=== PATIENT | female | born 1990 | race Asian ===

== ENCOUNTER 2024-03-10 23:35 | Observation (INO) ==
[2024-03-11 01:10] LABS: ABS Eosinophils 0.1 10^3/uL (0.0-0.5); ABS Lymphocytes 1.3 10^3/uL (1.0-4.8); ABS Monocytes 0.7 10^3/uL (0.0-0.9); ABS Neutrophils 7.5 10^3/uL (1.5-7.6); Eosinophil % 0.9 %; Hematocrit 37.1 % (35-45); Hemoglobin 12.4 g/dL (11.5-14.3); Lymphocyte % 13.9 %; Mean Corpuscular Hgb Conc 33.3 g/dL (31-36); Mean Corpuscular Volume 87.2 fL (80-97); Mean Platelet Volume 7.9 fL (7.5-11.2); Platelet Count 171 10^3/uL (150-450); Red Blood Count 4.26 10^6/uL (3.63-4.92); Red Cell Distribution Width 13.9 % (12-17); White Blood Count 9.7 10^3/uL (3.8-11.8)
[2024-03-11] MEDS: Morphine 4 MG/ML VIAL (1 ml) IV ONE (01:24)
[2024-03-11] MEDS: Ondansetron 4 mg VIAL 2 MG/ML 2 ml VIAL IV ONE (01:24)
[2024-03-11 01:40] LABS: Urine Appearance Clear; Urine Bilirubin Negative (Negative); Urine Blood 1+ (Negative); Urine Color Light-Yellow; Urine Glucose Negative (Negative); Urine Ketones 2+ (Negative); Urine Nitrite Negative (Negative); Urine Protein Negative (Negative); Urine Specific Gravity 1.019 (1.002-1.030); Urine Urobilinogen Negative (Negative); Urine pH 6.5 (5.0-8.0)
[2024-03-11 01:51] LABS: ALT 13 U/L (7-52); AST 11 U/L (13-39); Albumin 4.1 g/dL (3.5-5.7); Albumin/Globulin Ratio 1.6 (1-3); Alkaline Phosphatase 54 U/L (35-149); Anion Gap 8 mmol/L (2-16); Blood Urea Nitrogen 14 mg/dL (6-24); C Reactive Protein 117.68 mg/L (<8.01); CO2 Carbon Dioxide 23 mmol/L (22-32); Calcium 8.7 mg/dL (8.6-10.3); Chloride 102 mmol/L (101-111); Creatinine, Serum 0.96 mg/dL (0.51-0.95); Globulin 2.6 g/dL (2-4); Glucose 93 mg/dL (70-100); Lipase 14 U/L (11.0-82.0); Potassium 3.8 mmol/L (3.5-5.0); Sodium 133 mmol/L (135-145); Total Bilirubin 0.8 mg/dL (0.2-1.0); Total Protein 6.7 g/dL (6.4-8.9); eGFR CKD-EPI 79.6 (>60)
[2024-03-11 01:58] LABS: HCG Pregnancy < 0.60 mIU/mL
[2024-03-11 02:40] LABS: Urine Bacteria Absent /HPF (Absent); Urine Red Blood Cell 1+(3-5/hpf) /HPF (0-Trace); Urine Squamous Epithelial Cell Present /HPF (Absent); Urine White Blood Cell Absent /HPF (0-Trace)
[2024-03-11] MEDS: cefTRIAXone 1 gm/50 mL D5W 1 GM/50 ML BAG IV ONE (04:53)
[2024-03-11] MEDS ORDERED: Morphine 2 MG/ML SYRINGE IV PRN (05:17)
[2024-03-11] MEDS: Lactated Ringers 1000 ml BAG 1,000 ML IV SCH ×2 (05:57→18:42)
[2024-03-11] MEDS: fentaNYL 100 mcg/2 ml 50 MCG/ML VIAL IV SLOW PU PRN (06:06)
[2024-03-11] MEDS ORDERED: Metoclopramide 5 MG/ML VIAL (10 mg) IV PRN (14:05)
[2024-03-11] MEDS ORDERED: fentaNYL 100 mcg/2 ml 50 MCG/ML VIAL IV PRN (14:05)
[2024-03-11] MEDS ORDERED: Ondansetron 4 mg VIAL 2 MG/ML 2 ml VIAL IV PRN (14:05)
[2024-03-11] MEDS ORDERED: Naloxone 0.4 mg VIAL 0.4 mg/ml 1 ml VIAL IV PRN (14:05)
[2024-03-11] MEDS ORDERED: Dexamethasone IV 4 MG/ML VIAL 1 ml VIAL ONE (14:23)
[2024-03-11] MEDS ORDERED: fentaNYL 100 mcg/2 ml 50 MCG/ML VIAL ONE (14:23)
[2024-03-11] MEDS ORDERED: Midazolam 2 mg/2 ml VIAL 1 mg/ml 2 ml VIAL (2 mg) ONE (14:23)
[2024-03-11] MEDS ORDERED: Ondansetron 4 mg VIAL 2 MG/ML 2 ml VIAL ONE (14:23)
[2024-03-11] MEDS ORDERED: Rocuronium 50 mg VIAL 10 mg/ml 5 ml VIAL (50 mg) ONE (14:23)
[2024-03-11] MEDS ORDERED: Propofol 10 MG/ML 20 ML BTL ONE (14:23)
[2024-03-11] MEDS ORDERED: Lidocaine 2% PF 5 ML VIAL ONE (14:24)
[2024-03-11] MEDS ORDERED: Scopolamine 1 mg/72hr PATCH ONE (14:27)
[2024-03-11] MEDS: Scopolamine 1 mg/72hr PATCH TRANSDERM ONE (14:32)
[2024-03-11] MEDS ORDERED: NS 0.45% 1000 ml BAG 1,000 ML IV SCH (15:00)
[2024-03-11] MEDS: Acetaminophen IV 1 GM/100ML 1,000 MG/100 ML BAG IV ONE (18:16)
[2024-03-11] MEDS: Buffered Lidocaine 1% SYRIN 1 ml INTRADERM ONE (18:16)
[2024-03-12] MEDS: cefTRIAXone 1 gm/50 mL D5W 1 GM/50 ML BAG IV SCH (05:25)
[2024-03-12 10:30] VITALS: BP 123/76
== END 2024-03-12 13:05 | disposition home or self-care (01) ==
LOC: ED 23:35 → EDHOLD 23:35 → SUATTDRO 03-11 05:30 → AA 03-11 12:44 → SSU 03-11 17:44
PROVIDERS: ADMIT Internal Medicine; ATTEND Internal Medicine